=== PATIENT | female | born 1985 | race Caucasian/White ===

== ENCOUNTER → 2016-12-03 | Outpatient (CLI) | payer OTHER ==
[~2016-12-03] MED LIST: ACET500T PO; ANUS2.5C2 EXT; DOCU10ELUD FT; PRENTAB74 PO; PRIL20CA PO; [UNRECOGNIZED DRUG - OTHER] PO
[2016-12-03 20:11] LABS: MEAN CORPUSCULAR HEMOGLOBIN 31.7 pg (27.0-33.0); MEAN CORPUSCULAR HGB CONC 32.3 g/dl (32.0-36.5); MEAN CORPUSCULAR VOLUME 98.1 fl (80.0-96.0); RED CELL DISTRIBUTION WIDTH 13.4 % (11.5-14.5); WHITE BLOOD COUNT 9.2 K/mm3 (4.0-10.0)
== END ==
LOC: M WUC 14:49
PROVIDERS: ATTEND Advanced Practice Midwife
DX: Z36 Encounter for antenatal screening of mother (principal); Z3A.00 Weeks of gestation of pregnancy not specified

== ENCOUNTER → 2017-01-21 | Outpatient (REF) | payer OTHER | LOC: M LAB REF 17:22 | PROVIDERS: ATTEND Advanced Practice Midwife | DX: Z34.83 Encounter for supervision of other normal pregnancy, third trimester (principal) ==

== ENCOUNTER 2017-02-19 12:19 | Inpatient (IN) | payer OTHER ==
[2017-02-19] VITALS (25 sets, daily range): BP systolic 101–140; BP diastolic 53–93
[~2017-02-19] VITALS: Ht 170.2 cm; Wt 80.0 kg
[2017-02-19] MEDS ORDERED: META0.52 PO (12:32)
[2017-02-19] MEDS ORDERED: SERT-155 PO (12:36)
[2017-02-19] MEDS ORDERED: LR 1,000 ML IV SCH (12:48)
[2017-02-19] MEDS ORDERED: OXYTOCIN DRIP 30 UNITS in APPROPRIATE DILUENT 1 EA IV SCH ×2 (13:00→22:17)
--- NOTE | 2017-02-19 13:33 | HPE ---
DATE OF ADMISSION: 02/19/2017 Raeann is a 31-year-old 5, para 4-0-0-4. She is at 40 weeks gestation with an estimated date of confinement (EDC) of 02/19/2017 based on last period and confirmed by first trimester ultrasound. She presents to labor and delivery today with a desire for social induction. Her care was initiated at [facility] in the first trimester. Her course has been uncomplicated. OBSTETRICAL HISTORY: June 2007 at 40-4/7 weeks gestation, she had a spontaneous vaginal delivery for an 8 pounds 7 ounces male. October 2008 at 40-4/7 weeks gestation, she had a spontaneous vaginal delivery for 7 pound 8 ounce female. September 2010 at 40-4/7 weeks gestation, she had a spontaneous vaginal delivery for a 8 pound 3 ounce female. June 2012 at 39-6/7 weeks gestation, she had a spontaneous vaginal delivery following the successful external cephalic version of a 7 pound 3 ounce female. OBSTETRICAL LABORATORIES: Her blood type is B+, antibody screen negative, rubella immune, VDRL nonreactive. Urine culture no growth. Hepatitis B surface antigen negative, HIV negative. Hepatitis C antibody nonreactive. Gonorrhea and chlamydia negative. She did decline all genetic serum screening markers. Gestational diabetic screening normal at 88. Her Group B streptococcus (GBS) is negative. PAST MEDICAL HISTORY: Raynaud's syndrome, childhood asthma, childhood varicella. SURGERIES: Tonsillectomy, appendectomy. FAMILY HISTORY: Diabetes, hypertension, heart disease and cancer. SOCIAL HISTORY: The patient is . She is a homemaker. The father of the baby, her is at bedside and supportive, as well as her mother. She is a nonsmoker. Denies alcohol and drug use. No history of any sexually transmitted infections, and no history of abuse physical, sexual or emotional. ALLERGIES: No known drug allergies, although she does report seasonal allergies. CURRENT MEDICATIONS: - Zoloft 100 mg - omeprazole 20 mg - vitamin OBJECTIVE: Temperature 99, pulse 85, respirations 16, blood pressure 131/76. She is alert and oriented times three. She is in no apparent distress. heart rate 130 with moderate variability, positive accelerations, no decelerations observed. There is occasional contraction. Sterile vaginal exam 3-4 cm dilated, 80% effaced, minus three station. No show with exam. Her abdomen is gravid, cephalic presentation. Estimated weight is 7 pounds. ASSESSMENT: Intrauterine at 40 weeks gestation. heart rate category 1. PLAN Admit the patient to labor and delivery. Out of bed ad kendrick. Clear liquid diet. Start IV Pitocin for labor induction. She does desire artificial rupture of membranes for labor augmentation once she is in labor. May consider an epidural for her labor coping. I did review risks and benefits related to induction, including, but not limited to failed induction, increased risk for section, failure to progress, intolerance to labor. The patient and her family have had all of their questions answered and do desire to proceed with induction at this time. I do anticipate labor and a spontaneous vaginal delivery.
[2017-02-19 13:54] LABS: MEAN CORPUSCULAR HEMOGLOBIN 31.2 pg (27.0-33.0); MEAN CORPUSCULAR HGB CONC 33.2 g/dl (32.0-36.5); MEAN CORPUSCULAR VOLUME 94.1 fl (80.0-96.0); RED CELL DISTRIBUTION WIDTH 14.1 % (11.5-14.5); WHITE BLOOD COUNT 14.1 K/mm3 (4.0-10.0)
[2017-02-19] MEDS ORDERED: FENTANYL 2MCG/ML ROPIVACAINE 0.2% IN 0.9% NACL 200ML IVBAG As Ordered ONE (20:10)
[2017-02-19] MEDS ORDERED: EPIDURAL/PCA KEYS XX PRN (20:50)
[2017-02-19] MEDS ORDERED: NALOXONE INJ 0.4 MG/1 ML VIAL (J2310) IV PRN (20:50)
[2017-02-19] MEDS ORDERED: diphenhydrAMINE INJ 50MG/ML VIAL (J1200) IV PRN (20:50)
[2017-02-19] MEDS ORDERED: ePHEDrine SULFATE 25 MG/5 ML(5MG/ML) SYRINGE IV PRN (20:50)
[2017-02-19] MEDS ORDERED: ONDANSETRON 4MG/2ML VIAL (J2405) IV PRN (20:50)
[2017-02-19] MEDS ORDERED: LACTATED RINGER'S 1000 ML IV PRN (20:50)
[2017-02-19] MEDS ORDERED: EPIDURAL COMMENT XX SCH (20:50)
[2017-02-19] MEDS ORDERED: REFRIGERATOR IV KEYS XX PRN (20:50)
[2017-02-19] MEDS ORDERED: FENTANYL/ROPIVACAINE/NACL BAG 200 ML EPIDURAL SCH (20:50)
--- NOTE | 2017-02-19 22:29 | DN ---
DATE: 02/19/2017 Zully is a 31-year-old 5, para 5-0-0-5 now who was admitted to labor and delivery for induction of labor. IV Pitocin was utilized as well as assisted rupture of membranes to augment her labor and labor did ensue. She reached full dilation at 2143 hours. She pushed to a normal spontaneous vaginal delivery of a live male in occiput anterior (OA) position with restitution to right occiput transverse (ROT) position at 2149 hours. There was a nuchal cord x 1 loose, reduced manually. The shoulders delivered with gentle downward guidance and the corpus immediately followed. The was placed on the maternal abdomen crying and active. His mouth and nares were bulb suctioned. The cord was clamped times two once pulsations ceased and cut by the father of the baby. A spontaneous expulsion of an intact placenta with three-vessel cord by Juan mechanism was at 2159 hours. Uterine hemostasis achieved with IV Pitocin rapid infusion and uterine fundal massage. Estimated blood loss 300 mL. Perineum and vagina were inspected and noted to be intact. [place] male. Weight is pending. scores 8 and 9. Family have named him Cristóbal. At the close of delivery laparotomy counts and instrument counts were correct and verified. [facility]
[2017-02-19] MEDS ORDERED: DIBUCAINE 1% OINTMENT 30GM TOP PRN (22:30)
[2017-02-19] MEDS ORDERED: DOCUSATE SODIUM 100 MG CAP PO PRN (22:30)
[2017-02-19] MEDS ORDERED: MEASLES,MUMPS,RUBELLA VACCINE INJ (MMR-II) (90707) SC SCH (22:30)
[2017-02-19] MEDS ORDERED: IBUPROFEN 800 MG TAB PO PRN (22:30)
[2017-02-19] MEDS ORDERED: RHOGAM 300 MCG (1500 IU) INJ (J2790) IM SCH (22:30)
[2017-02-19] MEDS ORDERED: ACETAMINOPHEN 500 MG TAB PO PRN (22:30)
[2017-02-19] MEDS ORDERED: METHYLERGONOVINE MALEATE 0.2 MG TAB PO PRN (22:30)
[2017-02-20 00:17] VITALS: BP 108/57
[2017-02-20 05:44] VITALS: BP 107/59
[2017-02-20] MEDS: PRENATAL VITAMIN TAB PO SCH (09:27)
[2017-02-20 17:50] VITALS: BP 119/56
[2017-02-21 05:58] VITALS: BP 90/54
[2017-02-21] MEDS: PRENATAL VITAMIN TAB PO SCH (09:33)
[2017-02-21] MEDS ORDERED: ADVI200C5 PO (11:31)
== END 2017-02-21 15:10 | disposition home or self-care (01) | DRG 560 ==
LOC: M LDI 12:19 → M OBS 02-20 00:03
PROVIDERS: ADMIT Advanced Practice Midwife; ATTEND Advanced Practice Midwife
PROC: 10E0XZZ Delivery of Products of Conception, External Approach (ICD-10-PCS; principal; 2017-02-19)
PROC: 10907ZC Drainage of Amniotic Fluid, Therapeutic from Products of Conception, Via Natural or Artificial Opening (ICD-10-PCS; 2017-02-19)
PROC: 3E033VJ Introduction of Other Hormone into Peripheral Vein, Percutaneous Approach (ICD-10-PCS; 2017-02-19)
DX: O69.81X0 Labor and delivery complicated by cord around neck, without compression, not applicable or unspecified (principal); Z37.0 Single live birth; Z3A.40 40 weeks gestation of pregnancy

== ENCOUNTER 2017-10-19 02:05 | Emergency (ER) | payer OTHER ==
[2017-10-19] MEDS: TETANUS/DIPHTHERIA TOX ADSORB ADULT 0.5ML SYR/VIAL (90714) IM (03:43)
[2017-10-19] MEDS: LIDOCAINE W/EPINEPHRINE 1% 20ML VIAL SC (03:44)
[2017-10-19] MEDS: BUPIVACAINE HCL 0.5% 10 ML VIAL SC (03:45)
[2017-10-19] MEDS ORDERED: POLYSPORIN OPHTH OINT 3.5 GM As Ordered (04:28)
== END 2017-10-19 04:46 | disposition home or self-care (01) ==
LOC: M ED 02:05
DX: S01.81XA Laceration without foreign body of other part of head, initial encounter (principal); W22.03XA Walked into furniture, initial encounter; Y92.003 Bedroom of unspecified non-institutional (private) residence as the place of occurrence of the external cause; Y93.01 Activity, walking, marching and hiking; Y99.8 Other external cause status; Z79.899 Other long term (current) drug therapy
CPT/HCPCS: 90714

== ENCOUNTER → 2017-12-09 | Outpatient (REF) | payer OTHER ==
[2017-12-15 08:07] LABS: HPV HYBRID CAPTURE II Negative (Negative)
== END ==
LOC: M LAB REF 13:16
DX: Z12.4 Encounter for screening for malignant neoplasm of cervix (principal)

== ENCOUNTER → 2018-12-31 | Outpatient (REF) | payer OTHER ==
[~2018-12-31] MED LIST changes: +ADVI200C5 PO; +META0.52 PO; +SERT-155 PO
[2019-01-04 14:26] LABS: HPV HYBRID CAPTURE II Negative (Negative)
== END ==
LOC: M LAB REF 17:37
PROVIDERS: ATTEND Advanced Practice Midwife
DX: Z12.4 Encounter for screening for malignant neoplasm of cervix (principal); Z11.51 Encounter for screening for human papillomavirus (HPV)
CPT/HCPCS: 87624; G0123

== ENCOUNTER → 2018-12-31 | Outpatient (CLI) | payer OTHER | LOC: M SMT 15:07 | PROVIDERS: ATTEND Advanced Practice Midwife | DX: Z15.01 Genetic susceptibility to malignant neoplasm of breast (principal); Z80.3 Family history of malignant neoplasm of breast ==

== ENCOUNTER 2019-10-08 12:51 | Emergency (ER) | payer BC, OTHER ==
[~2019-10-08] VITALS: Ht 170.2 cm; Wt 75.0 kg
[~2019-10-08 12:51] MED LIST changes: -DOCU10ELUD FT; +DOCU5LIQ FT; -SERT-155 PO; +SERT50TA29 PO
[2019-10-08] MEDS ORDERED: PREVTAB2 (12:58)
[2019-10-08] MEDS ORDERED: MORPHINE 4 MG/ML 1ML VIAL/SYRINGE (J2270) IM ONE (13:45)
[2019-10-08] MEDS ORDERED: diazePAM 10 MG TAB PO ONE (13:45)
[2019-10-08] MEDS ORDERED: ONDANSETRON 4 MG ORAL DISINTEGRATING TAB (Q0162 PER 1MG) PO ONE (13:45)
--- NOTE | 2019-10-08 14:38 | REP ---
REASON: Pain in the neck after trauma. PRIORS: None. Vertebral body height and alignment is within normal limits. The disc spaces are symmetric and well maintained. Mild spondylosis is seen posteriorly at C5-6. The facet joints are well aligned bilaterally. There is no abnormal paraspinal soft-tissue swelling. IMPRESSION:No acute fracture. Mild chronic changes as described above. Electronically Signed by Ajith Atwood DO 10/08/2019 03:54 P
[2019-10-08] MEDS ORDERED: CYCL5TAB PO (14:48)
[2019-10-08] MEDS ORDERED: MOBI4TAB PO (14:48)
[2019-10-08] MEDS ORDERED: PRED20TA PO (14:48)
[2019-10-08 15:00] VITALS: BP 141/87
== END 2019-10-08 15:02 | disposition home or self-care (01) ==
LOC: M ED 12:51
DX: M47.892 Other spondylosis, cervical region (principal); Z79.899 Other long term (current) drug therapy; Z79.3 Long term (current) use of hormonal contraceptives
CPT/HCPCS: 72125; 96372; 99284; J2270; Q0162

== ENCOUNTER → 2020-12-26 | Outpatient (REF) | payer BC ==
[~2020-12-26] MED LIST changes: +CYCL5TAB PO; +MOBI4TAB PO; +PRED20TA PO; +PREVTAB2
== END ==
LOC: M LAB REF 16:15
PROVIDERS: ATTEND Nurse Practitioner Adult Health
DX: I73.00 Raynaud's syndrome without gangrene (principal)

== ENCOUNTER → 2021-01-01 | Outpatient (REF) | payer BC | LOC: M SFHCWAGY 18:54 | PROVIDERS: ATTEND Advanced Practice Midwife | DX: Z12.4 Encounter for screening for malignant neoplasm of cervix (principal) ==

== ENCOUNTER → 2021-06-11 | Outpatient (REF) | payer BC ==
[2021-06-12 12:03] LABS: APPEARANCE, URINE CLEAR (CLEAR); BACTERIA, URINE AUTO NEGATIVE (NEGATIVE); BILIRUBIN, URINE AUTO NEGATIVE (NEGATIVE); BLOOD, URINE BLOOD 1+ (NEGATIVE); COLOR, URINE STRAW (YELLOW); GLUCOSE, URINE (UA) AUTO NEGATIVE (NEGATIVE); KETONE, URINE AUTO NEGATIVE (NEGATIVE); LEUKOCYTE ESTERASE, URINE AUTO NEGATIVE (NEGATIVE); MUCUS, URINE SMALL (NEGATIVE); NITRITE, URINE AUTO NEGATIVE (NEGATIVE); PROTEIN, URINE AUTO NEGATIVE (NEGATIVE); RBC, URINE AUTO 1 /HPF (0-3); SPECIFIC GRAVITY URINE AUTO 1.008 (1.002-1.035); SQUAMOUS EPITHELIAL CELL UR AU 0 /HPF (0-6); UROBILINOGEN, URINE AUTO 0.2 mg/dL (0.0-2.0); WBC, URINE AUTO 0 /HPF (0-3)
[2021-06-12 12:39] LABS: CREATININE,RANDOM URINE 58.9 MG/DL
== END ==
LOC: M SFHCRHEU 16:53
PROVIDERS: ATTEND Internal Medicine
DX: R76.8 Other specified abnormal immunological findings in serum (principal)

== ENCOUNTER → 2021-08-06 | Outpatient (REF) | payer BC ==
[2021-08-06 17:51] LABS: COMPLEMENT C3 129 MG/DL (90-180); COMPLEMENT C4 25 MG/DL (10-40)
== END ==
LOC: M SFHCRHEU 14:42
PROVIDERS: ATTEND Internal Medicine
DX: R76.8 Other specified abnormal immunological findings in serum (principal)

== ENCOUNTER → 2021-12-09 | Outpatient (CLI) | payer BC ==
[2021-12-09 16:13] LABS: FOLATE 10.2 NG/ML; RHEUMATOID FACTOR QUANT < 10.0 IU/ML (<15.0); TOTAL PROTEIN 7.3 GM/DL (6.4-8.2); VITAMIN B12 LEVEL 481 PG/ML
[2021-12-10 10:33] LABS: PTT LUPUS TYPE ANTICOAG SCREEN 1.2 (0-1.2)
[2021-12-10 10:41] LABS: DRVV CONFIRM 39.2 SEC
[2021-12-10 10:45] LABS: NORMALIZED RATIO 1.2 (0.00-1.20)
[2021-12-10 11:23] LABS: ALBUMIN 4.28 GM/DL (3.29-5.55); ALBUMIN % 58.6 % (55.8-66.1)
[2021-12-10 11:24] LABS: ALPHA-1-GLOBULIN % 4.7 % (2.9-4.9); ALPHA-1-GLOBULINS 0.34 GM/DL (0.17-0.41); ALPHA-2-GLOBULINS 0.87 GM/DL (0.42-0.99); ALPHA-2-GLOBULINS % 11.9 % (7.1-11.8); BETA-1-GLOBULINS 0.55 GM/DL (0.28-0.60); BETA-1-GLOBULINS % 7.6 % (4.7-7.2); BETA-2-GLOBULINS 0.33 GM/DL (0.19-0.55); BETA-2-GLOBULINS % 4.5 % (3.2-6.5); GAMMA GLOBULIN % 12.7 % (11.1-18.8); GAMMA GLOBULINS 0.93 GM/DL (0.65-1.58)
== END ==
LOC: M PLALAB 14:06
PROVIDERS: ATTEND Psychiatry & Neurology Neurology
DX: M54.2 Cervicalgia (principal)

== ENCOUNTER → 2022-08-20 | Outpatient (CLI) | payer BC ==
[~2022-08-20] MED LIST changes: +CIDA500T2 PO; +COLLPOW8 XX; +ESTA0.25 PO; +K2 P1TAB PO; +KP F1200 PO; +[UNRECOGNIZED DRUG - OTHER] PO
== END ==
LOC: M LABSMTC 10:13
PROVIDERS: ATTEND Anesthesiology
DX: Z01.818 Encounter for other preprocedural examination (principal); Z11.52 Encounter for screening for COVID-19

== ENCOUNTER 2022-08-25 11:06 | Day surgery (SDC) | payer BC ==
[~2022-08-25] VITALS: Ht 170.2 cm; Wt 67.9 kg
[2022-08-25] MEDS ORDERED: LR 1,000 ML IV SCH ×3 (11:35→15:20)
[2022-08-25] MEDS ORDERED: MIDAZOLAM INJ 2MG/2ML VIAL (J2250 PER 1MG) As Ordered ONE (11:43)
[2022-08-25] MEDS ORDERED: ROCURONIUM BROMIDE 50 MG/5 ML VIAL As Ordered ONE (11:43)
[2022-08-25] MEDS ORDERED: propofoL 200 MG/20 ML VIAL As Ordered ONE (11:43)
[2022-08-25] MEDS ORDERED: LIDOCAINE 2% 100MG/5ML SDV (FOR ANES.) As Ordered ONE (11:43)
[2022-08-25] MEDS ORDERED: fentaNYL 100 MCG/2 ML INJECTION As Ordered ONE (11:43)
[2022-08-25 12:14] LABS: HEMATOCRIT 43.6 % (36.0-47.0); HEMOGLOBIN 14.2 g/dl (12.0-15.5); MEAN CORPUSCULAR HEMOGLOBIN 32.2 pg (27.0-33.0); MEAN CORPUSCULAR HGB CONC 32.6 g/dl (32.0-36.5); MEAN CORPUSCULAR VOLUME 98.9 fl (80.0-96.0); PLATELET COUNT, AUTOMATED 357 10^3/uL (150-450); RED BLOOD COUNT 4.41 10^6/uL (4.00-5.40); WHITE BLOOD COUNT 7.4 10^3/uL (4.0-10.0)
[2022-08-25] MEDS ORDERED: BUPIVACAINE HCL 0.25% 10ML VIAL As Ordered ONE (13:33)
[2022-08-25] MEDS ORDERED: HYDROmorphone HCL 2MG/ML 1ML VIAL As Ordered ONE (14:04)
[2022-08-25] MEDS ORDERED: dexameTHASONE 4 MG/ML 1ML VIAL (J1100 PER 1MG) As Ordered ONE (14:07)
[2022-08-25] MEDS ORDERED: ACETAMINOPHEN 1000MG 100ML IV BTL (OFIRMEV) (J0131 PER 10MG) As Ordered ONE (14:18)
[2022-08-25] MEDS ORDERED: KETOROLAC 60MG 2ML VIAL As Ordered ONE (14:18)
[2022-08-25] MEDS ORDERED: ONDANSETRON 4MG 2ML VIAL As Ordered ONE (14:18)
[2022-08-25] MEDS ORDERED: SUGAMMADEX SODIUM 500 MG/5 ML VIAL (BRIDION) As Ordered ONE (14:20)
[2022-08-25] MEDS ORDERED: ONDANSETRON 4MG 2ML VIAL IV PRN (14:30)
[2022-08-25] MEDS ORDERED: HYDROMORPHONE HCL 0.5 MG/ 0.5 ML SYRINGE (J1170 PER 1) IV PRN (14:30)
[2022-08-25] MEDS ORDERED: oxyCODONE 5MG TAB PO PRN (14:30)
[2022-08-25] MEDS ORDERED: fentaNYL 100 MCG/2 ML INJECTION IV PRN (14:30)
[2022-08-25] MEDS ORDERED: IBUP-1022 PO (14:43)
[2022-08-25] MEDS ORDERED: OXYC1TAB23 PO (14:44)
[2022-08-25] MEDS ORDERED: PERCOCET 5MG/325MG TAB PO PRN (15:20)
[2022-08-25 16:00] VITALS: BP 120/70
== END 2022-08-25 16:10 | disposition home or self-care (01) ==
LOC: M SDC 11:06
PROVIDERS: ATTEND Specialist
DX: Z30.2 Encounter for sterilization (principal); K21.9 Gastro-esophageal reflux disease without esophagitis; I73.00 Raynaud's syndrome without gangrene; M51.36 Other intervertebral disc degeneration, lumbar region; Z79.3 Long term (current) use of hormonal contraceptives
CPT/HCPCS: 36415; 58661; 81025; 85027; 88302; J0131; J1100; J1170; J1885; J2250; J2405; J3010

== ENCOUNTER → 2023-01-23 | Outpatient (REF) | payer BC ==
[~2023-01-23] MED LIST changes: +IBUP-1022 PO; +OXYC1TAB23 PO
== END ==
LOC: M SFHCWAGY 12:48
PROVIDERS: ATTEND Advanced Practice Midwife
DX: Z12.4 Encounter for screening for malignant neoplasm of cervix (principal); R87.619 Unspecified abnormal cytological findings in specimens from cervix uteri
CPT/HCPCS: 87624; G0123

== ENCOUNTER → 2023-01-27 | Outpatient (CLI) | payer BC | LOC: M WHC 10:24 | PROVIDERS: ATTEND Advanced Practice Midwife | DX: Z12.31 Encounter for screening mammogram for malignant neoplasm of breast (principal) ==

== ENCOUNTER → 2023-02-04 | Outpatient (CLI) | payer BC | LOC: M WHC 13:02 | PROVIDERS: ATTEND Advanced Practice Midwife | DX: N63.22 Unspecified lump in the left breast, upper inner quadrant (principal) ==

== ENCOUNTER → 2023-07-28 | Outpatient (CLI) | payer BC | LOC: M WHC 14:50 | PROVIDERS: ATTEND Surgery | DX: R92.8 Other abnormal and inconclusive findings on diagnostic imaging of breast (principal) ==

== ENCOUNTER 2024-11-18 09:41 | Emergency (ER) | payer BC ==
[~2024-11-18] VITALS: Ht 170.2 cm; Wt 76.0 kg
[~2024-11-18 09:41] MED LIST changes: -CYCL5TAB PO; +CYCL5TAB4 PO
[2024-11-18] MEDS: MECLIZINE 25 MG TABLET PO ONE (11:53)
[2024-11-18] MEDS: diazePAM 5MG TABLET PO ONE (13:25)
[2024-11-18] MEDS ORDERED: ONDA-282 PO (15:02)
[2024-11-18] MEDS ORDERED: MECL-209 PO (15:02)
[2024-11-18 15:09] VITALS: BP 110/71; TEMP 97.2; O2SAT 99
== END 2024-11-18 15:17 | disposition home or self-care (01) ==
LOC: M ED 09:41
DX: H81.13 Benign paroxysmal vertigo, bilateral (principal); Z79.899 Other long term (current) drug therapy

== ENCOUNTER → 2025-06-27 | Outpatient (REF) | payer BC ==
[~2025-06-27] MED LIST changes: -IBUP-1022 PO; +IBUP600T42 PO; +MECL-209 PO; +ONDA-282 PO
== END ==
LOC: M LAB REF 18:00
PROVIDERS: ATTEND Internal Medicine
DX: R74.01 Elevation of levels of liver transaminase levels (principal); Z82.49 Family history of ischemic heart disease and other diseases of the circulatory system